=== PATIENT | male | born 1960 | race African-American/Black ===

== ENCOUNTER 2019-02-22 12:46 | Emergency (ER) | payer BC ==
[2019-02-22 12:51] VITALS: BP 156/86; PULSE 79; TEMP 98.8; BMI 26.3
[2019-02-22] MEDS ORDERED: SODIUM CHLORIDE 1,000 ML IV STA (13:23)
[2019-02-22] MEDS ORDERED: KETOROLAC TROMETHAMINE 30 MG/1 ML VIAL IVPUSH ONE (13:23)
[2019-02-22] MEDS ORDERED: KETOROLAC TROMETHAMINE 30 MG/1 ML VIAL ONE (13:41)
[2019-02-22 14:16] LABS: BASO % 1.2 % (0-2.0); EOS % 2.4 % (0-4.5); HEMATOCRIT 45.6 % (35.4-49); HEMOGLOBIN 15.1 GM/dL (11.7-16.9); LYMPH % 20.1 % (8-40); MCH 28.7 pg (25.7-33.7); MCHC 33.1 g/dl (32.0-35.9); MEAN CELL VOLUME 86.7 fl (80-96); MEAN PLT VOLUME 7.8 fl (7.5-11.1); MONO % 9.2 % (3.8-10.2); NEUT % 67.1 % (42.8-82.8); PLATELET COUNT 349 K/MM3 (134-434); RBC 5.26 M/mm3 (4.00-5.60); RDW 14.3 % (11.9-15.9); WHITE BLOOD COUNT 9.9 K/mm3 (4.0-10.0)
[2019-02-22 14:17] LABS: PH,URINE 5.5 (5.0-8.0); URINE APPEARANCE TURBID; URINE BACTERIA 0.3 /hpf (NEGATIVE); URINE BILIRUBIN NEGATIVE (NEGATIVE); URINE CASTS 0 /lpf (0-8); URINE COLOR ORANGE; URINE GLUCOSE (UA) NEGATIVE (NEGATIVE); URINE KETONE NEGATIVE (NEGATIVE); URINE LEUK ESTERASE 1+ (NEGATIVE); URINE NITRITE NEGATIVE (NEGATIVE); URINE PROTEIN 2+ (NEGATIVE); URINE RBC 4896 /hpf (0-4); URINE WBC 11 /hpf (0-5)
--- NOTE | 2019-02-22 14:21 | PDOC ---
History of Present Illness - General Chief Complaint: Pain Stated Complaint: LOWER BACK Time Seen by Provider: 02/22/19 13:22 History Source: Patient Exam Limitations: No Limitations - History of Present Illness Travel History: No Initial Comments: 02/22/19 14:53 58 y/o male with no med hx presents to the ED for evaluation for rt flank pain intermittently x 5 weeks worsening over the past 2-3 days. Pt also c/o hematuria intermittently since yesterday with small red bolld clots. Pt denies nausea, fever, abd distention , bowel complaints, or GI/ hx. Timing/Duration: reports: getting worse Quality: reports: moderate, sharpness Abdominal Pain Onset Location: reports: flank Pain Radiation: reports: back Activities at Onset: reports: none Aggravating Factors: improves with: None Alleviating Factors: improves with: None Past History - Travel Traveled outside of the country in the last 30 days: No - Past Medical History Allergies/Adverse Reactions: Allergies Allergy/AdvReac Type Severity Reaction Status Date / Time No Known Allergies Allergy Verified 02/22/19 12:51 Home Medications: Ambulatory Orders NK [No Known Home Medication] 02/22/19 COPD: No - Suicide/Smoking/Psychosocial Hx Smoking History: Never smoked Patient Lives Alone: No Lives with/in: spouse/SO Review of Systems - Review of Systems Able to Perform ROS?: Yes Constitutional: No: Symptoms Reported HEENTM: No: Symptoms Reported Respiratory: No: Symptoms reported ABD/GI: No: Nausea, Vomiting : Yes: Flank Pain, Hematuria. No: Dysuria Musculoskeletal: Yes: Back Pain Integumentary: No: Symptoms Reported Neurological: No: Symptoms reported Endocrine: No: Symptoms Reported *Physical Exam - Vital Signs Last Vital Signs Temp Pulse Resp BP Pulse Ox 98.8 F 79 18 156/86 99 02/22/19 12:49 02/22/19 12:49 02/22/19 12:49 02/22/19 12:49 02/22/19 12:49 - Physical Exam General Appearance: Yes: Nourished, Appropriately Dressed. No: Apparent Distress HEENT: negative: Pale Conjunctivae Respiratory/Chest: positive: Lungs Clear, Normal Breath Sounds. negative: Respiratory Distress, Accessory Muscle Use Cardiovascular: positive: Regular Rhythm, Regular Rate. negative: Murmur Gastrointestinal/Abdominal: positive: Soft, Tenderness (rt flank) Male Genitalia: positive: normal genitalia Musculoskeletal: positive: CVA Tenderness (R) Extremity: positive: Normal Capillary Refill Integumentary: positive: Normal Color, Warm, Moist Neurologic: positive: Motor Strength 5/5 (ambulatory) ED Treatment Course - LABORATORY CBC & Chemistry Diagram: 02/22/19 13:49 02/22/19 13:49 - Medications Given in the ED: ED Medications Discontinued Medications Generic Name Dose Route Start Last Admin Trade Name Mario PRN Reason Stop Dose Admin Ketorolac Tromethamine 30 mg 02/22/19 13:23 02/22/19 14:01 Toradol Injection - IVPUSH 02/22/19 13:24 30 mg ONCE ONE Administration Medical Decision Making - Medical Decision Making 02/22/19 14:28 CC: rt flank pain with hematuria x 5 weeks worsening x 2 days Exam: rt flank and rt cv tenderness Plan: labs, urine, ivf, toradol, and will consider imaging once labs reviewed 02/22/19 15:00 Laboratory Tests 02/22/19 02/22/19 02/22/19 13:49 13:49 13:49 WBC 9.9 Hgb 15.1 Hct 45.6 Plt Count 349 Sodium 135 L Potassium 4.5 Chloride 104 Carbon Dioxide 28 Anion Gap 3 L BUN 14 Creatinine 1.1 Random Glucose 116 H Alkaline Phosphatase 124 H Total Protein 7.7 Albumin 3.5 Lipase 420 H Urine Protein 2+ H Urine Blood 3+ H Ur Leukocyte Esterase 1+ H Urine RBC (Auto) [address] ordered. elevated lipase noted 02/22/19 16:54 CT shows a large solid right renal mass 8.9 x8.1 x 7.2cm. Recommend contrast enhanced CT. + mild degree of right sided hydronephrosis and hydroureter down the lower pelvis. + faint opacity within the distal ureter at this location suspicious for a partially obstructing calculus. Discussed results with pt who denies hx of mass, and has not had a prostate exam nor o colonoscopy before 02/22/19 19:02 Pt [address] results of CT. Will endorse. Pt also with noted renal calculi and would benefit from flomax and will need f/u. *DC/Admit/Observation/Transfer - Referrals Referrals: ON STAFF,NOT [Primary Care Provider] - - Patient Instructions - Post Discharge Activity
[2019-02-22 14:48] LABS: ALBUMIN 3.5 g/dl (3.4-5.0); ALK PHOS 124 U/L (45-117); ANION GAP 3 MMOL/L (8-16); BILIRUBIN,TOTAL 0.7 mg/dL (0.2-1); BLOOD UREA NITROGEN 14 mg/dL (7-18); CALCIUM 9.2 mg/dL (8.5-10.1); CHLORIDE 104 mmol/L (98-107); CO2 28 mmol/L (21-32); CREATININE 1.1 mg/dL (0.55-1.3); GLUCOSE,RANDOM 116 mg/dL (74-106); LIPASE 420 U/L (73-393); POTASSIUM 4.5 mmol/L (3.5-5.1); SGOT/AST 18 U/L (15-37); SGPT/ALT 26 U/L (13-61); SODIUM 135 mmol/L (136-145); TOT PROT 7.7 g/dl (6.4-8.2)
--- NOTE | 2019-02-22 19:50 | PDOC ---
*Physical Exam - Vital Signs Last Vital Signs Temp Pulse Resp BP Pulse Ox 98.8 F 79 18 156/86 99 02/22/19 12:49 02/22/19 12:49 02/22/19 12:49 02/22/19 12:49 02/22/19 12:49 ED Treatment Course - LABORATORY CBC & Chemistry Diagram: 02/22/19 13:49 02/22/19 13:49 - ADDITIONAL ORDERS Additional order review: Laboratory Results 02/22/19 02/22/19 13:49 13:49 Sodium 135 L Potassium 4.5 Chloride 104 Carbon Dioxide 28 Anion Gap 3 L BUN 14 Creatinine 1.1 Creat Clearance w eGFR 69.24 Random Glucose 116 H Calcium 9.2 Total Bilirubin 0.7 AST 18 ALT 26 Alkaline Phosphatase 124 H Total Protein 7.7 Albumin 3.5 Lipase 420 H Urine Color [place] Urine Appearance Turbid Urine pH 5.5 Ur Specific [place] 1.027 Urine Protein 2+ H Urine Glucose (UA) Negative Urine Ketones Negative Urine Blood 3+ H Urine Nitrite Negative Urine Bilirubin Negative Urine Urobilinogen 1.0 Ur Leukocyte Esterase 1+ H Urine WBC (Auto) 11 Urine RBC (Auto) 4896 Urine Casts (Auto) 0 U Epithel Cells (Auto) 1.0 Urine Bacteria (Auto) 0.3 02/22/19 13:49 RBC 5.26 MCV 86.7 MCHC 33.1 RDW 14.3 MPV 7.8 Neutrophils % 67.1 Lymphocytes % 20.1 Monocytes % 9.2 Eosinophils % 2.4 Basophils % 1.2 - Medications Given in the ED: ED Medications Discontinued Medications Generic Name Dose Route Start Last Admin Trade Name Mario PRN Reason Stop Dose Admin Sodium Chloride 1,000 mls @ 1,000 mls/hr 02/22/19 13:23 02/22/19 14:01 Normal Saline - IV 02/22/19 14:22 1,000 mls/hr ASDIR STA Administration Ketorolac Tromethamine 30 mg 02/22/19 13:23 02/22/19 14:01 Toradol Injection - IVPUSH 02/22/19 13:24 30 mg ONCE ONE Administration Oxycodone/Acetaminophen 1 combo 02/22/19 19:08 02/22/19 19:20 Percocet 5/325 - PO 02/22/19 19:09 1 combo ONCE ONE Administration Medical Decision Making - Medical Decision Making 02/22/19 19:50 Patient endorsed to me pending CT scan 02/22/19 20:29 Endorsed to me pending CT scan with IV contrast. Patient Full Name: WENDY HENLEY Patient Accession No: [id number] Patient : 1960 Reason for Exam: renal mass Referring Physician: JEVON HOPKINS Patient Name: LORY NGUYEN THIS IS A PRELIMINARY REPORT FROM [facility] DATE OF SERVICE: 2019-02-22 16:55:06 IMAGES: [id number] EXAM: ABDOMEN \T\ PELVIS CT WITH CONTR HISTORY: Renal mass COMPARISON: None. FINDINGS: There is a large lobulated heterogeneously enhancing mass arising from the posterior right kidney measuring 7.2 x 9.2 cm axially and 7 cm in craniocaudal dimension compatible with renal cell carcinoma Enlarged lymph node medial to the right kidney measuring 1 cm in short axis. Cannot exclude malignant adenopathy There is mild right hydronephrosis and ureterectasis without evidence of an obstructing ureteral stone The left kidney is unremarkable The liver is mildly enlarged The gallbladder is normal The spleen, pancreas and adrenal glands are unremarkable There is no bowel distention Normal appendix Sigmoid diverticula without evidence of acute diverticulitis Bilateral inguinal hernias containing fat No intra-abdominal free air, free fluid or loculated collections Tiny nodule in the lateral left lower lobe measuring less than 4 mm likely incidental. The visualized lung bases are otherwise clear One or more of the following dose reduction techniques were used: automated exposure control, adjustment of the mA and/or kV according to patient size, use of iterative reconstructive technique. THIS DOCUMENT HAS BEEN ELECTRONICALLY SIGNED Fito Salmeron MD 02/22/2019 19:49 GARRETT Wetzel. Please call [facility] [phone] ([phone]) with questions. INTERPRETING RADIOLOGIST: Fito Salmeron MD Electronically Signed: Feb 22, 2019 07:50PM EDT 02/22/19 21:25 Pharmacy changed from [facility] to [facility] in [place]. I discussed the physical exam findings, ancillary test results and final diagnoses with the patient. I answered all of the patient's questions. The patient was satisfied with the care received and felt comfortable with the discharge plan and treatment plan. The Patient agrees to follow up with the primary care physician within 24-72 hours. All referrals given to the patient Dr. Carpio for heme/onc, Dr. Mo Neff for urology, and a primary care doctor Dr. Merritt, or Isaiah *DC/Admit/Observation/Transfer Diagnosis at time of Disposition: Renal mass, Kidney stone - Discharge Dispostion Disposition: HOME Condition at time of disposition: Stable - Prescriptions Prescriptions: Oxycodone HCl/Acetaminophen [Percocet 5-325 mg Tablet] 1 tab PO Q6H #20 tablet MDD 6 Tamsulosin HCl [Flomax] 0.4 mg PO DAILY #7 cap.er.24h - Referrals Referrals: ON STAFF,NOT [Primary Care Provider] - Jackie Castellanos MD [Staff Physician] - Isidro Correia MD [Staff Physician] - Johnnie Carpio MD [Non Staff, Medical] - Gonzalo Winchester MD [Staff Physician] - - Patient Instructions Printed Discharge Instructions: DI for Kidney Stones, DI for Kidney Cancer Additional Instructions: Your Discharge Instructions: You must call primary care physician within 24 hours to arrange follow-up. Return to the Emergency Department with any new, persistent or worsening symptoms, for fever, chills, SOB, dizziness or any other concerning changes that may occur. We have provided copies of the CT scan report which need to be taken to the consult. - Post Discharge Activity
[2019-02-22] MEDS ORDERED: TAMSULOSIN HCL 0.4 MG CAP PO ONE (21:00)
[2019-02-22] MEDS ORDERED: TAMSULOSIN HCL 0.4 MG CAP ONE (21:15)
== END 2019-02-22 21:27 | disposition home or self-care (01) ==
LOC: JER 12:46
PROC: 3E0333Z Introduction of Anti-inflammatory into Peripheral Vein, Percutaneous Approach (ICD-10-PCS; principal; 2019-02-22)
DX: N13.2 Hydronephrosis with renal and ureteral calculous obstruction (principal); N28.89 Other specified disorders of kidney and ureter
CPT/HCPCS: 36415; 74176-TC; 74177-TC; 80053; 81003; 83690; 85025; 87086; 99283-25; J7030

== ENCOUNTER 2019-04-22 19:00 | Emergency (ER) | payer BC ==
[2019-04-22] MEDS ORDERED: ASPIRIN 81 MG CHEWABLE TABLETS PO ONE (19:09)
--- NOTE | 2019-04-22 19:09 | PDOC ---
Rapid Medical Evaluation Time Seen by Provider: 04/22/19 19:07 Medical Evaluation: Allergies Allergy/AdvReac Type Severity Reaction Status Date / Time No Known Allergies Allergy Verified 02/22/19 12:51 04/22/19 19:07 HPI:s/p R partial nephrectomy now has CP x2 days and getting worse since last night PE:No distress ORDERS: Cardiac work up Discharge Disposition - Diagnosis Chest pain - Referrals - Patient Instructions - Post Discharge Activity
[2019-04-22 19:10] VITALS: TEMP 98.4; BMI 26.9
[2019-04-22] MEDS ORDERED: ASPIRIN 81 MG CHEWABLE TABLETS ONE (21:11)
--- NOTE | 2019-04-22 21:23 | PDOC ---
History of Present Illness - General Chief Complaint: Chest Pain Stated Complaint: ANXIETY/SENT BY PCP Time Seen by Provider: 04/22/19 19:07 - History of Present Illness Initial Comments: 04/22/19 21:41 58 yo M with h/o right partial nephrectomy (03/25/19), right renal mass, who p/ w chest tightness, SOB. Patient reports 1 week of progressive intermittent, retrosternal, chest pressure, SOB, lightheadedness, and "heart racing." Symptoms primarily present at rest, occurring sporadically throughout the day with absent identifiable triggers or alleviators. Patient denies OSBORN, vision change, palpitations, cough, wheezing, orthopena, PND , leg swelling/pain, N/V, F,C, urinary complaints, hematuria, BPR, abdominal pain, diarrhea, constipation, lightheadedness, weakness, sensory changes. PMHx: as noted above. Denies h/o CAD/DE, stent placement, CABG, PE/DVT. ROS: as noted SHx: Denies Etoh, IVDA, tobacco use Allergies: NKDA Past History - Past Medical History Allergies/Adverse Reactions: Allergies Allergy/AdvReac Type Severity Reaction Status Date / Time No Known Allergies Allergy Verified 04/22/19 19:10 Home Medications: Ambulatory Orders Oxycodone HCl/Acetaminophen [Percocet 5-325 mg Tablet] 1 tab PO Q6H #20 tablet MDD 6 02/22/19 Tamsulosin HCl [Flomax] 0.4 mg PO DAILY #7 cap.er.24h 02/22/19 Alprazolam [Xanax] 0.25 mg PO DAILY PRN #5 tablet MDD 1 tablet 04/23/19 Cancer: Yes (KIDNEY CA) COPD: No - Suicide/Smoking/Psychosocial Hx Smoking History: Never smoked Review of Systems - Review of Systems Comments:: 04/22/19 21:29 GENERAL/CONSTITUTIONAL: No fever or chills. No weakness. HEAD, EYES, EARS, NOSE AND THROAT: No change in vision. No ear pain or discharge. No sore throat. CARDIOVASCULAR: + chest pain and shortness of breath RESPIRATORY: No cough, wheezing, or hemoptysis. GASTROINTESTINAL: No nausea, vomiting, diarrhea or constipation. GENITOURINARY: No dysuria, frequency, or change in urination. MUSCULOSKELETAL: No joint or muscle swelling or pain. No neck or back pain. SKIN: No rash NEUROLOGIC: + Lightheadedness. No headache, vertigo, loss of consciousness, or change in strength/sensation. ENDOCRINE: No increased thirst. No abnormal weight change HEMATOLOGIC/LYMPHATIC: No anemia, easy bleeding, or history of blood clots. ALLERGIC/IMMUNOLOGIC: No hives or skin allergy. *Physical Exam - Vital Signs Last Vital Signs Temp Pulse Resp BP Pulse Ox 98.4 F 76 18 161/90 98 04/22/19 19:08 04/22/19 19:08 04/22/19 19:08 04/22/19 19:08 04/22/19 19:08 - Physical Exam Comments: 04/22/19 21:29 GENERAL: Awake, alert, and fully oriented, in no acute distress HEAD: No signs of trauma, normocephalic, atraumatic EYES: PERRLA, EOMI, sclera anicteric, conjunctiva clear ENT: Auricles normal inspection, hearing grossly normal, nares patent, oropharynx clear without exudates. Moist mucosa NECK: Normal ROM, supple, no lymphadenopathy, JVD, or masses LUNGS: No distress, speaks full sentences, clear to auscultation bilaterally HEART: Regular rate and rhythm, normal S1 and S2, no murmurs, rubs or gallops, peripheral pulses normal and equal bilaterally. ABDOMEN: + Right lower abdominal incision scar c/d/i with absent drainage or discharge. Soft, NDS, normoactive bowel sounds. No guarding, no rebound. No masses EXTREMITIES : Normal inspection, Normal range of motion, no edema. No clubbing or cyanosis. NEUROLOGICAL: Cranial nerves II through XII grossly intact. Normal speech, normal gait, no focal sensorimotor deficits SKIN: Warm, Dry, normal turgor, no rashes or lesions noted ED Treatment Course - LABORATORY CBC & Chemistry Diagram: 04/22/19 22:00 04/22/19 22:00 - Medications Given in the ED: ED Medications Discontinued Medications Generic Name Dose Route Start Last Admin Trade Name Freq PRN Reason Stop Dose Admin Aspirin 162 mg 04/22/19 19:09 04/22/19 20:09 Asa - PO 04/22/19 19:10 162 mg ONCE ONE Administration Medical Decision Making - Medical Decision Making 04/22/19 21:46 58 yo M with h/o right partial nephrectomy (03/25/19), right renal mass, who p/ w chest tightness, SOB. Vitals wnl, AF, A&OX3. Physical exam unremarkable. ACS/ DE r/o. Low risk PE based on Wells criteria. Will assess for cardiac dysarrythmias, thyroid dysfunction, ypoglycemia, electrolyte abnml, metabolic and toxic derangements, acid-base disturbances, infection. ED Course: 04/22/19 23:00 Laboratory Tests 04/22/19 04/22/19 22:00 22:00 WBC 7.5 Hgb 13.7 Hct 42.0 Plt Count 323 Sodium 138 Potassium 4.1 Anion Gap 6 L BUN 12.6 Troponin I < 0.02 04/22/19 23:44 EKG: NSR with absent ISSA, STD. Nml interval duration and axis. Nml R wave progression. Absent Q waves. 04/23/19 02:04 Laboratory Tests 04/22/19 04/22/19 04/22/19 22:00 22:00 22:00 WBC 7.5 Hgb 13.7 Hct 42.0 Plt Count 323 Sodium 138 Potassium 4.1 Carbon Dioxide 30 BUN 12.6 Creatinine 1.1 Troponin I < 0.02 TSH 2.79 04/23/19 02:20 Xanax sent to pharmacy Patient repeat trop negative Stable for d/c with return precautions *DC/Admit/Observation/Transfer Diagnosis at time of Disposition: Chest pain Qualifiers: Chest pain type: unspecified Qualified Code(s): R07.9 - Chest pain, unspecified - Discharge Dispostion Disposition: HOME Condition at time of disposition: Stable Decision to Admit order: No - Prescriptions Prescriptions: Alprazolam [Xanax] 0.25 mg PO DAILY PRN #5 tablet MDD 1 tablet PRN Reason: Anxiety - Referrals - Patient Instructions Printed Discharge Instructions: DI for Atypical Chest Pain Additional Instructions: Please return to the emergency department with any new or worsening symptoms or concerns. Please follow up with your primary care physician within 72 hours. - Post Discharge Activity
[2019-04-22 22:25] LABS: BASO % 1.7 % (0-2.0); EOS % 3.8 % (0-4.5); HEMOGLOBIN 13.7 GM/dL (11.7-16.9); LYMPH % 30.1 % (8-40); MCH 27.3 pg (25.7-33.7); MCHC 32.6 g/dl (32.0-35.9); MEAN CELL VOLUME 83.8 fl (80-96); MEAN PLT VOLUME 7.8 fl (7.5-11.1); MONO % 7.7 % (3.8-10.2); NEUT % 56.7 % (42.8-82.8); PLATELET COUNT 323 K/MM3 (134-434); RBC 5.01 M/mm3 (4.00-5.60); RDW 14.9 % (11.9-15.9); WHITE BLOOD COUNT 7.5 K/mm3 (4.0-10.0)
[2019-04-22 22:49] LABS: INR 0.99 (0.83-1.09); PROTHROMBIN TIME (PATIENT) 11.7 SEC (9.7-13.0)
[2019-04-22 22:53] LABS: ALBUMIN 3.8 g/dl (3.4-5.0); ALK PHOS 106 U/L (45-117); ANION GAP 6 MMOL/L (8-16); BILIRUBIN,TOTAL 0.4 mg/dL (0.2-1); BLOOD UREA NITROGEN 12.6 mg/dL (7-18); CALCIUM 9.2 mg/dL (8.5-10.1); CHLORIDE 103 mmol/L (98-107); CO2 30 mmol/L (21-32); CREATININE 1.1 mg/dL (0.55-1.3); GLUCOSE,RANDOM 109 mg/dL (74-106); MAGNESIUM 2.4 mg/dL (1.8-2.4); POTASSIUM 4.1 mmol/L (3.5-5.1); SGOT/AST 16 U/L (15-37); SGPT/ALT 28 U/L (13-61); SODIUM 138 mmol/L (136-145); TOT PROT 7.5 g/dl (6.4-8.2)
--- NOTE | 2019-04-22 23:30 | PDOC ---
Documentation entered by Brant Grider SCRIBE, acting as scribe for Link Yoder MD. Link Yoder MD: This documentation has been prepared by the Manri loredo Elijah, SCRIBE, under my direction and personally reviewed by me in its entirety. I confirm that the documentation accurately reflects all work, treatment, procedures, and medical decision making performed by me. Attending Attestation - Resident Resident Name: Abel Carlson - ED Attending Attestation I have performed the following: I have examined & evaluated the patient, The case was reviewed & discussed with the resident, I agree w/resident's findings & plan, Exceptions are as noted - HPI HPI: 04/22/19 23:04 The patient is a 58 year old male with a significant PMH of right partial nephrectomy for renal mass (03/25/19 @[facility]) who presents to the ED with 1 week of intermittent chest tightness and SOB. Pt reports the symptoms occur mostly at night when he is lying down to sleep. He describes the symptoms as chest tightness and feeling like the world is "closing in on me." He also describes feelings of insides closing, claustrophobia, mouth drying, and trouble breathing which lasts for a few seconds before it subsides. He states at times he feels like his heart is racing and he can't catch his breath. He states the chest tightness is not radiating. He does not typically have this pain during the day because he states "I try to distract myself with work, etc." Last night he states the symptoms were the most severe and he had to get out of bed. Once he did, he sat with his son in the AC while he watched TV and the symptoms improved. He attempted to go back to bed but the symptoms recurred. Pt was referred to a PMD by his surgeon for f/u and attempted to call for an appointment today but was referred to the ER or urgent care for his sxs. Pt believes his symptoms are due to anxiety but states he is confused because despite recent stressful events with his health, he has not been preoccupied with those thoughts consciously. Denies nausea, vomiting, diaphoresis, dizziness , weakness/numbness, fever, chills, headache, abd pain, changes in BM or Urinary output, cough. Allergies: NKA Social history: No reported - Physicial Exam PE: 04/22/19 23:04 GENERAL: Awake, alert, and fully oriented, in no acute distress. HEAD: No signs of trauma EYES: PERRLA, EOMI, sclera anicteric, conjunctiva clear ENT: Auricles normal inspection, hearing grossly normal, nares patent, oropharynx clear without exudates. Moist mucosa NECK: Nontender, no stepoffs, Normal ROM, supple, no lymphadenopathy, JVD, or masses LUNGS: Breath sounds equal, clear to auscultation bilaterally. No wheezes, and no crackles HEART: Regular rate and rhythm, normal S1 and S2, no murmurs, rubs or gallops ABDOMEN: Soft, nontender, normoactive bowel sounds. No guarding, no rebound. No masses EXTREMITIES: Normal range of motion, no edema. No clubbing or cyanosis. No cords, erythema, or tenderness NEUROLOGICAL: Cranial nerves II through XII intact. 5/5 strength and sensation in all extremities, Normal speech, normal cerebellar function SKIN: Large healing midline scar extending from R flank to midline abdomen covered with clean and dry steri strips. No erthythema, warmth or discharge - Medical Decision Making 04/22/19 23:27 58yo M recent partial nephrectomy for renal mass presents to the ED with nightly episodes of SOB, chest tightness, palpitations, claustrophobia, and inability to sleep. Vitals and exam unremarkable EKG with intraventricular block but no ISSA DDx includes ACS vs PE vs acute stress reaction 2/2 recent health issues Pt is low risk for ACS, as such will check trop x2 Pt is moderate risk for PE given recent surgery and malignancy within 6 months, as such will obtain CTA Will reassess 04/23/19 02:00 Trop neg x2 CTA neg for PE, no other acute pathology Pt given xanax 0.25mg, will reassess 04/23/19 02:20 Pt feeling better, will f/u with PMD in 1-2 days (pamphlet for resident clinic provided) Clinically well appearing, stable for DC home. I discussed the physical exam findings, ancillary test results and final diagnoses with the patient. I answered all of the patient's questions. The patient was satisfied with the care received and felt comfortable with the discharge plan and treatment plan. The patient will call their primary care physician within 24 hours to arrange follow-up and will return to the Emergency Department with any new, persistent or worsening symptoms. Heart Score/ECG Review - History History: Slightly suspicious - Electrocardiogram EKG: Non specific repolarization disturbance - Age Age: 45-65 - Risk Factors Based on the list above the patient has:: 1-2 risk factors - Troponin Troponin: </= normal limit - Score Heart Score - Total: 3 #1 04/22/19 23:25 Twelve-lead EKG was performed and reviewed by me. Normal sinus rhythm, rate 72. No ST elevations. Intraventricular block. No previous EKGs to compare.
[2019-04-23] MEDS ORDERED: ALPRAZolam 0.25 MG TABLET PO ONE (02:03)
[2019-04-23] MEDS ORDERED: ALPRAZolam 0.25 MG TABLET ONE (02:30)
[2019-04-23 02:51] VITALS: BP 156/87; PULSE 80
--- NOTE | 2019-04-23 13:39 | EKG ---
Test Reason : Blood Pressure : / mmHG Vent. Rate : 072 BPM Atrial Rate : 072 BPM P-R Int : 196 ms QRS Dur : 144 ms QT Int : 428 ms P-R-T Axes : 061 060 048 degrees QTc Int : 468 ms NORMAL SINUS RHYTHM NON-SPECIFIC INTRA-VENTRICULAR CONDUCTION BLOCK ABNORMAL ECG NO PREVIOUS ECGS AVAILABLE Confirmed by GO AN MD ([id number]) on 04/23/2019 1:39:06 PM Referred By: Confirmed By:GO AN MD
== END 2019-04-23 02:52 | disposition home or self-care (01) ==
LOC: JER 19:00
DX: R07.9 Chest pain, unspecified (principal); Z90.5 Acquired absence of kidney
CPT/HCPCS: 36415; 71046-TC-FY; 71275-TC; 80053; 82550; 83735; 84443; 84484; 85025; 85379; 85610; 93005; 93010; 99283-25